=== PATIENT | male | born 1960 ===

== ENCOUNTER 2020-08-07 11:45 | Inpatient (IN) | payer OTHER ==
[~2020-08-07] VITALS: Ht 195.6 cm; Wt 136.1 kg
[2020-08-11] MEDS ORDERED: GLIPIZIDE XL5 MG PO (11:37)
[2020-08-11] MEDS ORDERED: METFORMIN HCL500 M3 PO (11:37)
[2020-08-11] MEDS ORDERED: ELIQUIS5 MG PO (11:38)
[2020-08-11] MEDS ORDERED: LANOXIN250 MCG PO (11:38)
[2020-08-11] MEDS ORDERED: TELMISARTAN-HC1 EACH PO (11:38)
[2020-08-11] MEDS ORDERED: TOPROL XL50 M1 PO (11:39)
[2020-08-11] MEDS ORDERED: AMLODIPINE BESY10 MG PO (11:39)
[2020-08-16] MEDS ORDERED: BACTRIM 400-801 EACH PO (07:43)
[2020-08-16] MEDS ORDERED: INTEGRA PLUS C1 EACH PO (07:43)
[2020-08-16] MEDS ORDERED: ELIQUIS5 MG PO (07:43)
[2020-08-16] MEDS ORDERED: OXYC1TAB9 PO (07:43)
== END 2020-08-17 15:25 | DRG 470 ==
LOC: O/R 08-14 09:42 → RECOVERY 08-14 11:45 → SURH 08-14 22:10
PROVIDERS: ADMIT Orthopaedic Surgery Sports Medicine; ATTEND Orthopaedic Surgery Sports Medicine
PROC: 0SRD0J9 Replacement of Left Knee Joint with Synthetic Substitute, Cemented, Open Approach (ICD-10-PCS; principal; 2020-08-14 17:00)
DX: M17.12 Unilateral primary osteoarthritis, left knee (principal); I10 Essential (primary) hypertension; E11.65 Type 2 diabetes mellitus with hyperglycemia; Z79.84 Long term (current) use of oral hypoglycemic drugs; G47.33 Obstructive sleep apnea (adult) (pediatric)

== ENCOUNTER 2020-08-28 16:44 | Emergency (ER) | payer OTHER ==
[~2020-08-28] VITALS: Ht 195.6 cm; Wt 134.3 kg
[~2020-08-28 16:44] MED LIST: AMLODIPINE BESY10 MG PO; BACTRIM 400-801 EACH PO; ELIQUIS5 MG PO; GLIPIZIDE XL5 MG PO; INTEGRA PLUS C1 EACH PO; LANOXIN250 MCG PO; METFORMIN HCL500 M3 PO; OXYC1TAB9 PO; TELMISARTAN-HC1 EACH PO; TOPROL XL50 M1 PO
[2020-08-28] MEDS ORDERED: BACTRIM DS TAB1 EACH PO (20:23)
== END 2020-08-28 20:52 | disposition home or self-care (01) ==
LOC: ER 16:44
DX: S80.02XA Contusion of left knee, initial encounter (principal); T81.31XA Disruption of external operation (surgical) wound, not elsewhere classified, initial encounter; M12.562 Traumatic arthropathy, left knee; W18.09XA Striking against other object with subsequent fall, initial encounter; Y93.89 Activity, other specified; Y92.098 Other place in other non-institutional residence as the place of occurrence of the external cause; Y99.8 Other external cause status